=== PATIENT | female | born 1975 | race Caucasian/White ===

== ENCOUNTER 2016-10-25 23:25 | Observation (INO) | payer BC, MEDICAID, OTHER ==
[~2016-10-25] VITALS: Ht 167.6 cm; Wt 116.5 kg
[~2016-10-25 23:25] MED LIST: APIX5TAB PO; ATEN50TA PO; GABA600T PO; LISI10TA3 PO; MORP1CAP79 PO; PERC10TA27 PO; PROM25TA10 PO; ROBA500T PO; SYNT175T PO; XANA2TAB2 PO
[2016-10-25] MEDS ORDERED: SODIUM CHLOR 0.9% 1000 ML INJ 1,000 ML IV ONE (23:27)
[2016-10-25 23:28] VITALS: BP 173/91; PULSE 70; RESP 17; O2SAT 98
--- NOTE | 2016-10-25 23:38 | PD ---
HPI Chief Complaint: Stroke Alert Time Seen by Provider: 23:27 Travel History International Travel<30 days: No Contact w/Intl Traveler<30days: No Traveled to known affect area: No History of Present Illness HPI The patient is a 40 year old female who presents to the [facility] emergency department with a history of reportedly taking a nap sometime this afternoon after having dinner at 6 PM because she was not feeling well. She reports that she awoke suddenly approximately 45 minutes to an hour before going to the [place] emergency department with numbness to the right side of the face and right arm and right leg weakness with facial droop of the right side of the face, right arm, and right leg. The patient was initially called as a stroke alert and evaluated by Dr. Arreguin at the [place] emergency department. The patient has a history of DVT, PE, and TIAs in the past. Most recent TIA was reportedly in 2017. The patient is also reportedly anticoagulated chronically on Eliquis. The patient has difficulty quantifying exactly how she fell ill prior to taking her nap. The patient is unsure what time she went to take a nap. She reports that she does live with her dad who may be aware of when she went to sleep. Unfortunately, her father is not available in the emergency department at this time. The patient did undergo a CT scan of the brain without contrast that was negative in [place]. The patient was transferred over to this facility for admission. The patient unfortunately is a poor historian, therefore her review of systems was limited. [facility] Past Medical History Narrative Medical The patient's past medical history is significant for being chronically anticoagulated on Eliquis related to DVTs and PEs due to a history of antiphospholipid antibody syndrome. The patient has a history of TIA, anxiety disorder, anemia, arthritis, hypothyroid disorder, hypertension. Hx Anticoagulant Therapy: Yes Anemia: Yes Arthritis: Yes Anxiety: Yes Depression: Yes Cardiovascular Problems: Yes (DVT, PE) Cerebrovascular Accident: Yes Diminished Hearing: No Deep Vein Thrombosis: Yes Hypertension: Yes Psychiatric: Yes (PANIC ATTACKS) Respiratory: Yes (PUL EMBOLISM) Thyroid Disease: Yes Past Surgical History Narrative Surgical The patient's past surgical history is significant for an appendectomy, C- section, hysterectomy, tonsillectomy, partial thyroidectomy. Appendectomy: Yes Section: Yes Hysterectomy: Yes (HTN) Tonsillectomy: Yes Other Surgery: Yes (THYROID REMOVED) Social History Alcohol Use: No (2 DRINKS PER MONTH) Tobacco Use: Yes (SOCIAL) Substance Use: No Allergies-Medications (Allergen,Severity, Reaction): Coded Allergies: Albuterol (Verified Allergy, Severe, 10/26/16) Arixtra (Verified Allergy, Severe, Bleeding, 10/26/16) Baclofen (Verified Allergy, Severe, Swelling, 10/26/16) Coumadin (Verified Allergy, Severe, 10/26/16) Lovenox (Verified Allergy, Severe, Bleeding, 10/26/16) Pradaxa (Verified Allergy, Severe, Swelling, 10/26/16) Reglan (Verified Allergy, Severe, Rash, 10/26/16) Tapazole (Verified Allergy, Severe, 10/26/16) Toradol (Verified Allergy, Severe, 10/26/16) Xarelto (Verified Allergy, Severe, Bleeding, 10/26/16) Zofran (Verified Allergy, Severe, 10/26/16) Reported Meds & Prescriptions Reported Meds & Active Scripts Active Reported Robaxin (Methocarbamol) 500 Mg Tab 500 Mg PO TID Percocet (Oxycodone-Acetaminophen) 10-325 mg Tab 1 Tab PO Q6H PRN Embeda (Morphine-Naltrexone ER) 20-0.8 Mg Caper 1 Cap PO DAILY Eliquis (Apixaban) 5 Mg Tab 5 Mg PO BID Phenergan (Promethazine HCl) 25 Mg Tablet 50 Mg PO Q6H PRN Gabapentin 600 Mg Tab 400 Mg PO QID Xanax (Alprazolam) 2 Mg Tab 2 Mg PO Q6HR PRN Lisinopril 10 Mg Tab 10 Mg PO BID Atenolol 50 Mg Tab 50 Mg PO DAILY Synthroid (Levothyroxine Sodium) 175 Mcg Tab 175 Mcg PO DAILY Review of Systems Except as stated in HPI: all other systems reviewed are Neg General / Constitutional: No: Fever Eyes: No: Visual changes HENT: No: Headaches Cardiovascular: No: Chest Pain or Discomfort Respiratory: No: Shortness of Breath Gastrointestinal: No: Abdominal Pain Genitourinary: No: Dysuria Musculoskeletal: No: Pain Skin: No Rash Neurologic: Positive: Weakness, Focal Abnormalities, Headache, Sensory Disturbance, No: Change in Mentation, Slurred Speech Psychiatric: No: Depression Endocrine: No: Polydipsia Hematologic/Lymphatic: No: Easy Bruising Physical Exam Narrative General: The patient is a well-developed well-nourished female in no acute distress on arrival. Head and Neck exam: Head is normocephalic atraumatic. Eyes: EOMI, pupils are equal round and reactive to light. Nose: Midline septum with pink mucous membranes Mouth: Dentition unremarkable. Moist mucus membranes. Posterior oropharynx is not erythematous. No tonsillar hypertrophy. Uvula midline. Airway patent. Neck: No palpable lymphadenopathy. No nuchal rigidity. No thyromegaly. Cardiovascular: Regular rate and rhythm without murmurs, gallops, or rubs. Lungs: Clear to auscultation bilaterally. No wheezes, rhonchi, or rales. Abdomen: Soft, without tenderness to palpation in all 4 quadrants of the abdomen. No guarding, rebound, or rigidity. Normal bowel sounds are audible. No tenderness on palpation of McBurney's point. Negative [place] sign. Extremities: No clubbing or cyanosis. The patient has trace to 1+ edema bilateral lower extremities. 2+ pulses in all 4 extremities. No calf tenderness on palpation. Back: No costovertebral angle tenderness to palpation. Neurologic Exam: The patient on neurologic examination has a right-sided facial droop, right upper and right lower extremity weakness that is 4 over 5. The patient has diminished sensation in the right side of the face, right upper and right lower extremity. The patient is oriented to person, place, situation. Skin Exam: No rash noted. Intact skin that is warm and dry. Data Data Last Documented VS Vital Signs Date Time Temp Pulse Resp B/P Pulse Ox O2 Delivery O2 Flow Rate FiO2 10/25/16 23:46 95 Room Air 10/25/16 23:46 16 10/25/16 23:28 70 173/91 Orders Activity Bed Rest (10/25/16 ) Consult Neurology (10/25/16 ) Ecg Monitoring (10/25/16 23:27) Neuro Checks Q2HX12,Q4H (10/25/16 23:27) Nursing Bedside Swallow Assess .ONCE (10/25/16 23:27) Iv Access Insert/Monitor (10/25/16 23:27) NPO (10/25/16 23:27) Oximetry (10/25/16 23:27) Oxygen Administration (10/25/16 23:27) Sodium Chlor 0.9% 1000 Ml Inj (Ns 1000 M (10/25/16 23:27) Resp Oxygen Justo C Titrat 1-4 L (10/25/16 23:) Cath For Specimen (10/25/16 23:) Admit Order (Ed Use Only) (10/26/16 00:37) MDM Medical Decision Making Medical Screen Exam Complete: Yes Emergency Medical Condition: Yes Medical Record Reviewed: Yes Differential Diagnosis Ischemic stroke, versus TIA, versus somatization Narrative Course During the course of the patients emergency department visit, the patients history, examination, and differential diagnosis were reviewed with the patient. The patient had IV access obtained and blood work sent for analysis. The patient was placed with the head of the bed flat. The patient was placed on normal saline 70 mL per hour. The patient's laboratory studies and CT scan of the brain from the other facility were reviewed. The patient's CT scan of the brain showed no acute abnormality. A CTA of the brain and CTA of the neck was ordered at this facility. Radiology studies were reviewed and remarkable for a CTA of the neck that shows normal examination of the neck arterial vasculature. The patient CTA of the brain shows no acute abnormality. The patients results were discussed with the patient, including the plan of care. I explained that further testing and/ or monitoring is indicated based on the patients history, examination, and/ or laboratory findings. Therefore, I recommended admission for additional evaluation. The patient expressed understanding and was agreeable with this plan. The patient was admitted to the hospital in stable condition and [facility] Physician Communication Physician Communication The patient's case was discussed with Dr. Mcgowan who did agree to admit the patient for further evaluation and treatment at this time. The patient's case was discussed with Dr. Gaines. She reports that the patient is not a candidate for TPA due to the patient being on L [place]. We did discuss the possibility of additional imaging. She did agree with the plan to receipt with CTA of the brain along with CT a of the neck Diagnosis Primary Impression: CVA (cerebral vascular accident) Qualified Code: I63.9 - Cerebrovascular accident (CVA), unspecified mechanism Admitting Information Admitting Physician Requests: Cristina Scales MD Oct 25, 2016 23:38
[2016-10-25 23:46] VITALS: RESP 16; O2SAT 9; O2SAT 95
[2016-10-26] MEDS ORDERED: IOHEXOL 350 MG/ML 10 ML VIAL (for RAD DIAG) IV ONE (00:52)
[2016-10-26] MEDS ORDERED: SODIUM CHLORIDE 0.9% FLUSH 10 ML FLUSH IV FLUSH PRN (01:15)
[2016-10-26] MEDS ORDERED: NALOXONE HCL 0.4 MG/ML AMP IV PRN (01:15)
--- NOTE | 2016-10-26 01:36 | RADRPT ---
EXAM DATE/TIME: 10/26/2016 01:21 [facility] COMPARISON: No previous studies available for comparison. INDICATIONS : Stroke alert. Right sided weakness and slurred speech. IV CONTRAST: 90 cc Omnipaque 350 (iohexol) IV ; Cumulative dose for multiple exams. RADIATION DOSE: 28.75 CTDIvol (mGy) ; Combined studies MEDICAL HISTORY : Cerebrovascular disease. Deep venous thrombosis. Hypertension. SURGICAL HISTORY : Hysterectomy. ENCOUNTER: Initial ACUITY: 1 day PAIN SCALE: 0/10 LOCATION: cranial TECHNIQUE: Volumetric scanning was performed using a multi-row detector CT scanner. The data was post processed with a variety of visualization algorithms including full volume maximum intensity projection, multi -planar sliding thin slab reformation, curved planar reformation, and surface rendering techniques. Using automated exposure control and adjustment of the mA and/or kV according to patient size, radiat ion dose was kept as low as reasonably achievable to obtain optimal diagnostic quality images. DICO M format image data is available electronically for review and comparison. FINDINGS: Anterior circulation: Arterial vessels are patent without significant stenosis. No aneurysm or vascular malformation is luis ntified. There is persistent circulation on the left. Posterior circulation: Left vertebral artery is dominant. Basilar artery is within normal limits. No aneurysm is identified. CONCLUSION: No acute intracranial vascular abnormality is identified. Stanford Salinas MD on October 26, 2016 at 1:27 Board Certified Radiologist. This report was verified electronically.
--- NOTE | 2016-10-26 01:37 | RADRPT ---
EXAM DATE/TIME: 10/26/2016 01:21 [facility] COMPARISON: No previous studies available for comparison. INDICATIONS : Stroke alert. Right sided weakness and slurred speech. IV CONTRAST: 90 cc Omnipaque 350 (iohexol) IV ; Cumulative dose for multiple exams. RADIATION DOSE: 28.75 CTDIvol (mGy) ; Combined studies MEDICAL HISTORY : Cerebrovascular disease. Deep venous thrombosis. Hypertension. SURGICAL HISTORY : Hysterectomy. ENCOUNTER: Initial ACUITY: 1 day PAIN SCALE: 0/10 LOCATION: neck Elevated flow velocities and ICA/CCA ratios have been found to correlate with increased degrees of vessel stenosis, calculated as percentage of diameter relative to a normal segment of distal ICA/CCA. TECHNIQUE: Volumetric scanning was performed using a multirow detector CT scanner. The data was post processed with a variety of visualization algorithms including full-volume maximum intensity projection, multip lanar sliding thin-slab reformation, curved-planar reformation, and surface-rendering techniques. Us ing automated exposure control and adjustment of the mA and/or kV according to patient size, radiatio n dose was kept as low as reasonably achievable to obtain optimal diagnostic quality images. DICOM f ormat image data is available electronically for review and comparison. FINDINGS: AORTIC ARCH: There is a three-vessel origin of the great vessels from the aorta. No evidence of ostial narrowing. RIGHT CAROTID: The common carotid artery is within normal limits. The carotid bulb has a normal configuration withou t ulceration or narrowing. The internal carotid artery lumen is smooth without stenosis. The externa l carotid artery is within normal limits. LEFT CAROTID: The common carotid artery is within normal limits. The carotid bulb has a normal configuration withou t ulceration or narrowing. The internal carotid artery lumen is smooth without stenosis. The externa l carotid artery is within normal limits. VERTEBRALS: The left vertebral artery is dominant. CONCLUSION: Normal examination of the neck arterial vasculature. Stanford Salians MD on October 26, 2016 at 1:34 Board Certified Radiologist. This report was verified electronically.
[2016-10-26 04:00] VITALS: BP 146/79; PULSE 66; RESP 18; TEMP 98.4; O2SAT 98
[2016-10-26] MEDS: ACETAMINOPHEN/HYDROcodone 325 MG/5 MG TAB PO PRN ×2 (05:57→10:48)
[2016-10-26 08:02] VITALS: BP 152/84; PULSE 65; RESP 20; TEMP 97.8; O2SAT 96
[2016-10-26 08:41] VITALS: O2SAT 95
[2016-10-26] MEDS: SODIUM CHLORIDE 0.9% FLUSH 10 ML FLUSH IV FLUSH SCH ×2 (09:00→20:43)
--- NOTE | 2016-10-26 09:24 | HHI.HP ---
HPI Service [facility] Primary Care Physician Unknown Admission Diagnosis CVA versus TIA Diagnoses: Chief Complaint: Right-sided numbness Travel History International Travel<30 Days: No Contact w/Intl Traveler <30 Da: No Traveled to Known Affected Are: No History of Present Illness This is a 40-year-old female past medical history of anxiety, lupus, transverse myelitis, hypertension, history of PE/DVTs, and antiphospholipid syndrome who presented with right-sided numbness. Patient stated that she has not been feeling well the entire week. She went to [facility] 1 week ago because she was not feeling well and she had some left leg swelling. She had ultrasound done to rule out DVT and that was negative. Patient stated that she was discharged from the ER. She stated that yesterday she woke up feeling like "right side popped and felt like cold water dripping on her face.' Patient stated she then " popped out of bed." She relates that her entire right side was numb including the right side of her face. Patient stated at the moment numbness continues and she has no strength in her left foot. She denies any back pain at all. Patient denies any urinary or fecal incontinence. Patient also stated that she is able to squeeze my fingers but she cannot lift her right arm. When I told patient the results of the imaging. She stated that she was told at [facility] that she has a clot in the brain of her left artery and that she needed to be transferred here. Patient stated that she is compliant with her eliquis. Review of Systems Constitutional: DENIES: Diaphoretic episodes, Fatigue, Fever, Weight gain, Weight loss, Chills, Dizziness, Change in appetite, Night Sweats Endocrine: DENIES: Abnorml menstrual pattern, Heat/cold intolerance, Polydipsia , Polyuria, Polyphagia Eyes: DENIES: Blurred vision, Diplopia, Eye inflammation, Eye pain, Vision loss , Photosensitivity, Double Vision Ears, nose, mouth, throat: DENIES: Tinnitus, Hearing loss, Vertigo, Nasal discharge, Oral lesions, Throat pain, Hoarseness, Ear Pain, Running Nose, Epistaxis, Sinus Pain, Toothache, Odynophagia Respiratory: DENIES: Apneas, Cough, Snoring, Wheezing, Hemoptysis, Sputum production, Shortness of breath Cardiovascular: DENIES: Chest pain, Palpitations, Syncope, Dyspnea on Exertion , PND, Lower Extremity Edema, Orthopnea, Claudication Gastrointestinal: DENIES: Abdominal pain, Black stools, Bloody stools, Constipation, Diarrhea, Nausea, Vomiting, Difficulty Swallowing, Anorexia Genitourinary: DENIES: Abnormal vaginal bleeding, Dysmenorrhea, Dyspareunia, Sexual dysfunction, Urinary frequency, Urinary incontinence, Urgency, Hematuria , Dysuria, Nocturia, Vaginal discharge Musculoskeletal: DENIES: Joint pain, Muscle aches, Stiffness, Joint Swelling, Back pain, Neck pain Integumentary: DENIES: Abnormal pigmentation, Pruritus, Rash, Nail changes, Breast masses, Breast skin changes, Nipple discharge Hematologic/lymphatic: DENIES: Bruising, Lymphadenopathy Immunologic/allergic: DENIES: Eczema, Urticaria Neurologic: COMPLAINS OF: Localized weakness, Paresthesias, DENIES: Abnormal gait, Headache, Seizures, Speech Problems, Tremor, Poor Balance Psychiatric: DENIES: Anxiety, Confusion, Mood changes, Depression, Hallucinations, Agitation, Suicidal Ideation, Homicidal Ideation, Delusions Past Family Social History Past Medical History Lupus, transverse myelitis, antiphospholipid syndrome, history of PE/DVTs, hypertension, anxiety/depression, hypothyroidism, chronic pain syndrome Past Surgical History IVC filter, appendectomy, thyroidectomy, tonsillectomy and Reported Medications Robaxin (Methocarbamol) 500 Mg Tab 500 Mg PO TID Percocet (Oxycodone-Acetaminophen) 10-325 mg Tab 1 Tab PO Q6H PRN Embeda (Morphine-Naltrexone ER) 20-0.8 Mg Caper 1 Cap PO DAILY Eliquis (Apixaban) 5 Mg Tab 5 Mg PO BID Phenergan (Promethazine HCl) 25 Mg Tablet 50 Mg PO Q6H PRN Gabapentin 600 Mg Tab 400 Mg PO QID Xanax (Alprazolam) 2 Mg Tab 2 Mg PO Q6HR PRN Lisinopril 10 Mg Tab 10 Mg PO BID Atenolol 50 Mg Tab 50 Mg PO DAILY Synthroid (Levothyroxine Sodium) 175 Mcg Tab 175 Mcg PO DAILY Allergies: Coded Allergies: Albuterol (Verified Allergy, Severe, 10/26/16) Arixtra (Verified Allergy, Severe, Bleeding, 10/26/16) Baclofen (Verified Allergy, Severe, Swelling, 10/26/16) Coumadin (Verified Allergy, Severe, 10/26/16) Lovenox (Verified Allergy, Severe, Bleeding, 10/26/16) Pradaxa (Verified Allergy, Severe, Swelling, 10/26/16) Reglan (Verified Allergy, Severe, Rash, 10/26/16) Tapazole (Verified Allergy, Severe, 10/26/16) Toradol (Verified Allergy, Severe, 10/26/16) Xarelto (Verified Allergy, Severe, Bleeding, 10/26/16) Zofran (Verified Allergy, Severe, 10/26/16) Active Ordered Medications Current Medications Sodium Chloride (NS 1000 ml Inj) 1,000 ml @ 70 mls/hr [id number] ONCE IV Last administered on 10/25/16 23:52; Start 10/25/16 at 23:27; Stop 10/26/16 at 13:44 Iohexol (Omnipaque 350 Inj) 90 ml STK-MED ONCE IV Last administered on 00:52; Start 10/26/16 at 00:52; Stop 10/26/16 at 00:53; Status DC Sodium Chloride (NS Flush) 2 ml UNSCH PRN IV FLUSH FLUSH AFTER USING IV ACCESS ; Start 10/26/16 at 01:15 Sodium Chloride (NS Flush) 2 ml BID IV FLUSH ; Start 10/26/16 at 09:00 Naloxone HCl (Narcan Inj) 0.4 mg UNSCH PRN IV SEE LABEL COMMENTS; Start at 01:15 Acetaminophen/ Hydrocodone Bitart ([place] 5-325 Mg) 1 tab Q6H PRN PO pain >5 Last administered on 10/26/16 05:57; Start 10/26/16 at 05:15 Family History Father had a history of diabetes and lymphoma. Mother had a history of breast cancer. Paternal aunt had history of renal cancer. Social History Positive tobacco use occasionally about once a week. Denies any alcohol illicit drug use. Physical Exam Vital Signs Vital Signs Date Time Temp Pulse Resp B/P Pulse Ox O2 Delivery O2 Flow Rate FiO2 10/26/16 08:41 95 Nasal Cannula 2.00 10/26/16 08:02 97.8 65 20 152/84 96 10/26/16 04:00 98.4 66 18 146/79 98 10/25/16 23:46 95 Room Air 10/25/16 23:46 16 95 Room Air 10/25/16 23:40 16 96 Room Air 10/25/16 23:28 70 17 173/91 98 Physical Exam GENERAL: This is a well-nourished, well-developed patient, in no apparent distress. SKIN: No rashes, ecchymoses or lesions. Cool and dry. HEAD: Atraumatic. Normocephalic. No temporal or scalp tenderness. EYES: Pupils equal round and reactive. Extraocular motions intact. No scleral icterus. No injection or drainage. ENT: Nose without bleeding, purulent drainage or septal hematoma. Throat without erythema, tonsillar hypertrophy or exudate. Uvula midline. Airway patent. NECK: Trachea midline. No JVD or lymphadenopathy. Supple, nontender, no meningeal signs. CARDIOVASCULAR: Regular rate and rhythm without murmurs, gallops, or rubs. RESPIRATORY: Clear to auscultation. Breath sounds equal bilaterally. No wheezes , rales, or rhonchi. GASTROINTESTINAL: Abdomen soft, non-tender, nondistended. No hepato-splenomegaly , or palpable masses. No guarding. MUSCULOSKELETAL: Extremities without clubbing, cyanosis, or edema. No joint tenderness, effusion, or edema noted. No calf tenderness. Negative Homans sign bilaterally. NEUROLOGICAL: Awake and alert AAO 3. Cranial nerves II through XII intact. Normal speech. To touch patient stated that right-sided of face feels numb, and right extremities. 0 out of 5 right lower extremity strength. Patient able to squeeze with right hand. But she is not able to move her shoulder. She has full passive range of motion of her shoulder with no pain. Imaging Last Impressions Neck CTA 10/26/16120 Signed Impressions: Service Date/Time: Wednesday, October 26, 2016 01:21 - CONCLUSION: Normal examination of the neck arterial vasculature. Stanford Salinas MD Head CTA 10/26/16120 Signed Impressions: Service Date/Time: Wednesday, October 26, 2016 01:21 - CONCLUSION: No acute intracranial vascular abnormality is identified. Stanford Salinas MD CT scan of the brain was negative. Assessment and Plan Assessment and Plan 40-year-old female with history of TIA, lupus, antiphospholipid syndrome, PE/ DVTs status post IVC filter placement, hypertension, anxiety/depression who presented with right-sided numbness/weakness Right-sided numbness/weakness -CT scan the brain was negative for any knee intracranial process. CTA of that head and neck also negative. -Based on clinical exam/symptoms I cannot localize a lesion to the brain. Usually if patient has upper facial numbness/symptoms it would be on the opposite side. -May be secondary to migraine versus psychiatric issues. -Psychiatrist and neurologist already consulted. -We will get an MRI of the brain to make sure this is not CVA. -Patient already on Eliquis and has an IVC filter. Lupus/antiphospholipid syndrome/chronic pain syndrome, history of PE/DVT status post IVC filter placement, hypertension, anxiety/depression -Will hold her antihypertensive medication pending MRI. Otherwise continue with home medication. Occasional tobacco use -Education given on smoking cessation. DVT prophylaxis -Patient is on Eliquis. Code Status full Discussed Condition With patient Patricia Soto MD Oct 26, 2016 09:24
[2016-10-26] MEDS ORDERED: ALPRAZolam 1 MG TAB PO PRN (11:00)
[2016-10-26 12:36] VITALS: BP 166/96; PULSE 72; RESP 20; TEMP 97.9; O2SAT 95
[2016-10-26] MEDS: GABAPENTIN 400 MG CAP PO SCH ×2 (12:48→20:41)
[2016-10-26] MEDS: METHOCARBAMOL 500 MG TAB PO SCH ×2 (12:48→18:00)
[2016-10-26] MEDS ORDERED: LORazepam 2 MG/ML VIAL IV PUSH ONE (13:45)
[2016-10-26] MEDS: oxyCODONE/ACETAMINOPHEN 10 MG/325 MG TAB PO PRN ×2 (14:19→20:42)
--- NOTE | 2016-10-26 15:27 | PD.PSY.CON ---
Provisional Diagnosis Admission Date Oct 26, 2016 at 00:38 [place] I. Adjustment disorder with depressed mood and anxiety, history of generalized anxiety disorder, history of major depressive disorder [place] II. Deferred [place] III. Lupus, antiphospholipid syndrome, hypothyroidism [place] IV. History of suicide attempts, multiple hospitalizations due to medical problems [place] V. 55 History of Present Illness Service Psychiatry Consult Requested By Primary Care Physician Unknown HPI The patient 40-year-old woman, but , domiciled with her parents, she has an 18 years old daughter, unemployed, with psychiatric history of generalized anxiety disorder, major depressive disorder, 3 previous psychiatric hospitalizations, no previous suicidal attempts, no active outpatient care at this moment, she reports being and Xanax 2 mg PER day, past medical history of lupus, transverse myelitis, hypertension, history of PE/DVTs , and antiphospholipid syndrome who presented with right-sided numbness. Patient stated that she has not been feeling well the entire week. She went to [facility] 1 week ago because she was not feeling well and she had some left leg swelling. She had ultrasound done to rule out DVT and that was negative. Patient stated that she was discharged from the ER. She stated that yesterday she woke up feeling like "right side popped and felt like cold water dripping on her face.' Patient stated she then " popped out of bed." She relates that her entire right side was numb including the right side of her face. Patient was consulted to psychiatry for management of anxiety and depressive symptoms. On psychiatric evaluation today patient is found calm and cooperative. Very talkative and circumstantial, but redirectable. She is complaining by her parents and she wanted to be evaluated in front of them. When she was asked 5- 10 minutes of privacy she says that "there is nothing that my parents cannot know about me". Patient reports that she has been feeling increasingly anxious the last weeks asked her medical condition has been deteriorating. Patient says that she has lost her functionality, her ability to make money, but also the ability to do simple things in her house. For this reason she has been anxious and depressed. She says that her appetite is a low, has insomnia, increased anxiety, but denies hopelessness, denies helplessness, she denies suicidal and homicidal ideation. She denies visual and auditory hallucinations. Patient says that another reason for her depression and anxiety is that "doctors are reluctant to prescribe me a medication that I need ". She is fully oriented 3, no attention deficit, no gross cognitive impairment present. She denies any current, acute, new onset traumatic experiences in her life. She says that other than her current medical conditions, maybe the only issue that is concerning for her and he says is that her 18 years old daughter is going start college. Patient denies the use of illicit drugs and alcohol. Review of Systems Constitutional: DENIES: Diaphoretic episodes, Fatigue, Fever, Weight gain, Weight loss, Chills, Dizziness, Change in appetite, Night Sweats Endocrine: DENIES: Abnorml menstrual pattern, Heat/cold intolerance, Polydipsia , Polyuria, Polyphagia Eyes: DENIES: Blurred vision, Diplopia, Eye inflammation, Eye pain, Vision loss , Photosensitivity, Double Vision Ears, nose, mouth, throat: DENIES: Tinnitus, Hearing loss, Vertigo, Nasal discharge, Oral lesions, Throat pain, Hoarseness, Ear Pain, Running Nose, Epistaxis, Sinus Pain, Toothache, Odynophagia Respiratory: DENIES: Apneas, Cough, Snoring, Wheezing, Hemoptysis, Sputum production, Shortness of breath Cardiovascular: DENIES: Chest pain, Palpitations, Syncope, Dyspnea on Exertion , PND, Lower Extremity Edema, Orthopnea, Claudication Gastrointestinal: DENIES: Abdominal pain, Black stools, Bloody stools, Constipation, Diarrhea, Nausea, Vomiting, Difficulty Swallowing, Anorexia Musculoskeletal: DENIES: Joint pain, Muscle aches, Stiffness, Joint Swelling, Back pain, Neck pain Integumentary: DENIES: Abnormal pigmentation, Pruritus, Rash, Nail changes, Breast masses, Breast skin changes, Nipple discharge Hematologic/lymphatic: DENIES: Bruising, Lymphadenopathy Immunologic/allergic: DENIES: Eczema, Urticaria Neurologic: DENIES: Abnormal gait, Headache, Localized weakness, Paresthesias, Seizures, Speech Problems, Tremor, Poor Balance Psychiatric: COMPLAINS OF: Anxiety, Depression Past Family Social History Coded Allergies: Albuterol (Verified Allergy, Severe, 10/26/16) Arixtra (Verified Allergy, Severe, Bleeding, 10/26/16) Baclofen (Verified Allergy, Severe, Swelling, 10/26/16) Coumadin (Verified Allergy, Severe, 10/26/16) Lovenox (Verified Allergy, Severe, Bleeding, 10/26/16) Pradaxa (Verified Allergy, Severe, Swelling, 10/26/16) Reglan (Verified Allergy, Severe, Rash, 10/26/16) Tapazole (Verified Allergy, Severe, 10/26/16) Toradol (Verified Allergy, Severe, 10/26/16) Xarelto (Verified Allergy, Severe, Bleeding, 10/26/16) Zofran (Verified Allergy, Severe, 10/26/16) Reported Medications Methocarbamol (Robaxin)500 Mg [id number] Mg PO TID Ref 0 08/31/16 Oxycodone-Acetaminophen (Percocet)10-325 mg Tab1 Tab PO Q6H PRN (PAIN) Ref 0 08/31/16 Morphine-Naltrexone ER (Embeda)20-0.8 Mg Caper1 Cap PO DAILY #30 CAP Ref 0 08/31/16 Apixaban (Eliquis)5 Mg Tab5 Mg PO BID #60 TAB Ref 0 08/31/16 Promethazine (Phenergan)25 Mg [id number] Mg PO Q6H PRN (NAUSEA OR VOMITING) Ref 0 08/31/16 Gabapentin 600 Mg [id number] Mg PO QID #90 TAB Ref 0 08/31/16 Alprazolam (Xanax)2 Mg Tab2 Mg PO Q6HR PRN (ANXIETY) Ref 0 08/31/16 Lisinopril 10 Mg Tab10 Mg PO BID #30 TAB Ref 0 08/31/16 Atenolol 50 Mg Tab50 Mg PO DAILY #30 TAB Ref 0 08/31/16 Levothyroxine (Synthroid)175 Mcg [id number] Mcg PO DAILY #30 TAB Ref 0 08/31/16 Current Medications Medications (Trade) Dose Ordered Sig/Tiffanie Route Start Time Stop Time Status Last Admin (NS Flush) 2 ml UNSCH PRN IV FLUSH 10/26/16 01:15 (NS Flush) 2 ml BID IV FLUSH 10/26/16 09:00 (Narcan Inj) 0.4 mg UNSCH PRN IV 10/26/16 01:15 (Xanax) 2 mg Q6HR PRN PO 10/26/16 11:00 10/26/16 20:00 10/26/16 10:48 (Eliquis) 5 mg BID PO 10/26/16 21:00 (Neurontin) 400 mg QID PO 10/26/16 13:00 10/26/16 12:48 (Robaxin) 500 mg TID PO 10/26/16 13:00 10/26/16 12:48 (Synthroid) 100 mcg DAILY@06 PO 10/27/16 06:00 Patient Own Medication PT OWN MED: MORPHINE-NALTREXONE (EMBEDA) 20-0.8... DAILY PO 10/27/16 09:00 Future Hold (Synthroid) 75 mcg DAILY@06 PO 10/27/16 06:00 (Percocet 10-325 Mg) 1 tab Q6H PRN PO 10/26/16 13:15 10/26/16 14:19 Family History Patient denies family psychiatric history Social History Patient was born in [place], she lives in [place] with her parents, and she is but , she has an 18 years old daughter, her highest level of education is college Physical Exam Vital Signs Vital Signs Date Time Temp Pulse Resp B/P Pulse Ox O2 Delivery O2 Flow Rate FiO2 10/26/16 12:36 97.9 72 20 166/96 95 10/26/16 08:41 Nasal Cannula 2.00 Mental Status Examination Appearance Overweight woman, good hygiene, hospital [facility], calm, cooperative, very talkative Speech: Circumstantial Orientation: x3 Memory: Unremarkable Thought Process: Logical Thought Content: Unremarkable Hallucination Type: None Attention and Concentration: Good Suicidal Ideation: No Previous Suicide Attempts: No Homicidal Ideation: No Previous Homicide Attempts: No Insight: Good Judgment: WNL Affect: Euthymic Mood: Appropriate Motor Activity: Normal gait Assessment & Plan Problem List: (1) Adjustment disorder with mixed anxiety and depressed mood Assessment & Plan: On psychiatric evaluation today the patient reports mild to moderate symptomatology of anxiety and depression secondary to current medical conditions. Patient has history of psychiatric Hospitalizations due to major depressive disorder and anxiety and suicidal ideation, but she has been reportedly stable for several months and Xanax 2 mg 4 times per day, patient reports failure to multiple psychotropics for the treatment of depression and anxiety claiming that only Xanax is the medication that works for her. Patient identified as acute stressor for her anxiety and depressive symptoms her current medical conditions and the fact that her 18 years old daughter is is starting college. However, patient denies suicidal or homicidal ideation, she denies visual and auditory hallucinations. She does not meet criteria for psychiatric admission at this moment. I would recommend to start Xanax in a lower dose, 1 mg 3 times a day for anxiety. I recommended an SSRI or SNRI for depression and anxiety, but patient declined. Current presentation systole related with adjustment disorder. Benzodiazepine dependence, drug seeking behavior, personality disorder and even Conversion are possibilities that needs to be explore and having mind, but impossible to determined based on this evaluation due to the lack information about patient psychiatric history and other elements. Extensive support, relational psycho education provided. Consult appreciated. ICD Code: F43.23 Assessment & Plan Estimated LOS: days Luis Armando Grey MD Oct 26, 2016 15:27
--- NOTE | 2016-10-26 15:29 | PD.PSY.CON ---
Provisional Diagnosis Admission Date Oct 26, 2016 at 00:38 [place] I. Adjustment disorder with depressed mood and anxiety, history of generalized anxiety disorder, history of major depressive disorder [place] II. Deferred [place] III. Lupus, antiphospholipid syndrome, hypothyroidism [place] IV. History of suicide attempts, multiple hospitalizations due to medical problems [place] V. 55 History of Present Illness Service Psychiatry Consult Requested By Primary Care Physician Unknown HPI The patient 40-year-old woman, but , domiciled with her parents, she has an 18 years old daughter, unemployed, with psychiatric history of generalized anxiety disorder, major depressive disorder, 3 previous psychiatric hospitalizations, patient reports "hundreds of medical admissions due to multiple medical problems "no previous suicidal attempts, no active outpatient care at this moment, she reports being and Xanax 2 mg PER day, patient was seen by the psychiatric service in 2008 for medication refill of benzodiazepines, past medical history of lupus, transverse myelitis, hypertension, history of PE/DVTs, and antiphospholipid syndrome who presented with right-sided numbness. Patient stated that she has not been feeling well the entire week. She went to [facility] 1 week ago because she was not feeling well and she had some left leg swelling. She had ultrasound done to rule out DVT and that was negative. Patient stated that she was discharged from the ER. She stated that yesterday she woke up feeling like "right side popped and felt like cold water dripping on her face.' Patient stated she then " popped out of bed." She relates that her entire right side was numb including the right side of her face. Patient was consulted to psychiatry for management of anxiety and depressive symptoms. On psychiatric evaluation today patient is found calm and cooperative. Very talkative and circumstantial, but redirectable. She is complaining by her parents and she wanted to be evaluated in front of them. When she was asked 5-10 minutes of privacy she says that "there is nothing that my parents cannot know about me". Patient reports that she has been feeling increasingly anxious the last weeks asked her medical condition has been deteriorating. Patient says that she has lost her functionality, her ability to make money, but also the ability to do simple things in her house. For this reason she has been anxious and depressed. She says that her appetite is a low, has insomnia, increased anxiety, but denies hopelessness, denies helplessness, she denies suicidal and homicidal ideation. She denies visual and auditory hallucinations. Patient says that another reason for her depression and anxiety is that "doctors are reluctant to prescribe me a medication that I need". She is fully oriented 3, no attention deficit, no gross cognitive impairment present. She denies any current, acute, new onset traumatic experiences in her life. She says that other than her current medical conditions, maybe the only issue that is concerning for her and he says is that her 18 years old daughter is going start college. Patient denies the use of illicit drugs and alcohol. Past Family Social History Coded Allergies: Albuterol (Verified Allergy, Severe, 10/26/16) Arixtra (Verified Allergy, Severe, Bleeding, 10/26/16) Baclofen (Verified Allergy, Severe, Swelling, 10/26/16) Coumadin (Verified Allergy, Severe, 10/26/16) Lovenox (Verified Allergy, Severe, Bleeding, 10/26/16) Pradaxa (Verified Allergy, Severe, Swelling, 10/26/16) Reglan (Verified Allergy, Severe, Rash, 10/26/16) Tapazole (Verified Allergy, Severe, 10/26/16) Toradol (Verified Allergy, Severe, 10/26/16) Xarelto (Verified Allergy, Severe, Bleeding, 10/26/16) Zofran (Verified Allergy, Severe, 10/26/16) Reported Medications Methocarbamol (Robaxin)500 Mg [id number] Mg PO TID Ref 0 08/31/16 Oxycodone-Acetaminophen (Percocet)10-325 mg Tab1 Tab PO Q6H PRN (PAIN) Ref 0 08/31/16 Morphine-Naltrexone ER (Embeda)20-0.8 Mg Caper1 Cap PO DAILY #30 CAP Ref 0 08/31/16 Apixaban (Eliquis)5 Mg Tab5 Mg PO BID #60 TAB Ref 0 08/31/16 Promethazine (Phenergan)25 Mg [id number] Mg PO Q6H PRN (NAUSEA OR VOMITING) Ref 0 08/31/16 Gabapentin 600 Mg [id number] Mg PO QID #90 TAB Ref 0 08/31/16 Alprazolam (Xanax)2 Mg Tab2 Mg PO Q6HR PRN (ANXIETY) Ref 0 08/31/16 Lisinopril 10 Mg Tab10 Mg PO BID #30 TAB Ref 0 08/31/16 Atenolol 50 Mg Tab50 Mg PO DAILY #30 TAB Ref 0 08/31/16 Levothyroxine (Synthroid)175 Mcg [id number] Mcg PO DAILY #30 TAB Ref 0 08/31/16 Current Medications Medications (Trade) Dose Ordered Sig/Tiffanie Route Start Time Stop Time Status Last Admin (NS Flush) 2 ml UNSCH PRN IV FLUSH 10/26/16 01:15 (NS Flush) 2 ml BID IV FLUSH 10/26/16 09:00 (Narcan Inj) 0.4 mg UNSCH PRN IV 10/26/16 01:15 (Xanax) 2 mg Q6HR PRN PO 10/26/16 11:00 10/26/16 20:00 10/26/16 10:48 (Eliquis) 5 mg BID PO 10/26/16 21:00 (Neurontin) 400 mg QID PO 10/26/16 13:00 10/26/16 12:48 (Robaxin) 500 mg TID PO 10/26/16 13:00 10/26/16 12:48 (Synthroid) 100 mcg DAILY@06 PO 10/27/16 06:00 Patient Own Medication PT OWN MED: MORPHINE-NALTREXONE (EMBEDA) 20-0.8... DAILY PO 10/27/16 09:00 Future Hold (Synthroid) 75 mcg DAILY@06 PO 10/27/16 06:00 (Percocet 10-325 Mg) 1 tab Q6H PRN PO 10/26/16 13:15 10/26/16 14:19 Physical Exam Vital Signs Vital Signs Date Time Temp Pulse Resp B/P Pulse Ox O2 Delivery O2 Flow Rate FiO2 10/26/16 12:36 97.9 72 20 166/96 95 10/26/16 08:41 Nasal Cannula 2.00 Mental Status Examination Speech: Circumstantial Orientation: x3 Memory: Unremarkable Thought Process: Logical Thought Content: Unremarkable Hallucination Type: None Attention and Concentration: Good Suicidal Ideation: No Previous Suicide Attempts: No Homicidal Ideation: No Previous Homicide Attempts: No Insight: Good Judgment: WNL Affect: Euthymic Mood: Appropriate Motor Activity: Normal gait Assessment & Plan Problem List: (1) Adjustment disorder with mixed anxiety and depressed mood ICD Code: F43.23 Assessment & Plan Estimated LOS: days Luis Armando Grey MD Oct 26, 2016 15:29
[2016-10-26 15:59] VITALS: BP 151/95; PULSE 70; RESP 20; TEMP 97.7; O2SAT 94
--- NOTE | 2016-10-26 18:39 | RADRPT ---
EXAM DATE/TIME: 10/26/2016 17:49 [place] COMPARISON: No previous studies available for comparison. INDICATIONS : Right sided weakness. CVA. MEDICAL HISTORY : Deep venous thrombosis. Hypertension. Transverse myelitis. Pulmonary embolism. TIA. SURGICAL HISTORY : section. Thyroidectomy. Tonsillectomy. Appendectomy. IVC filter. ENCOUNTER: Subsequent ACUITY: 2 day PAIN SCORE: 0/10 LOCATION: head. TECHNIQUE: Multiplanar, multisequence MRI of the brain was performed without contrast. FINDINGS: CEREBRUM: The ventricles are normal for age. No evidence of midline shift, mass lesion, hemorrhage or acute in farction. No extraaxial fluid collections are seen. The pituitary gland and suprasellar cistern are normal in configuration. WHITE MATTER: No significant signal abnormalities are seen in the white matter. POSTERIOR FOSSA: The cerebellum and brainstem are intact. The 4th ventricle is midline. The cerebellopontine angle is unremarkable. The cerebellar tonsils are normal in position. DIFFUSION IMAGING: No focal areas of restricted diffusion are seen. No evidence of acute infarction. EXTRACRANIAL: The visualized portions of the orbits and paranasal sinuses are unremarkable. CONCLUSION: 1. Unremarkable MRI the brain. 2. No acute infarction seen. Alen Morillo MD on October 26, 2016 at 18:35 Board Certified Radiologist. This report was verified electronically.
[2016-10-26 20:00] VITALS: BP 128/75; PULSE 79; RESP 20; TEMP 98; O2SAT 98
[2016-10-26] MEDS: APIXABAN 5 MG TABLET PO SCH (20:43)
[2016-10-26] MEDS: ALPRAZolam 1 MG TAB PO SCH (20:43)
[2016-10-27] VITALS (7 sets, daily range): BP systolic 104–162; BP diastolic 67–99; PULSE 68–84; RESP 18–20; TEMP 97.8–98.3; O2SAT 93–100
[2016-10-27] MEDS: ALPRAZolam 1 MG TAB PO SCH ×2 (05:01→12:35)
[2016-10-27] MEDS ORDERED: LEVOTHYROXINE SODIUM 75 MCG TAB PO SCH (06:00)
[2016-10-27] MEDS ORDERED: LEVOTHYROXINE SODIUM 100 MCG TAB PO SCH (06:00)
--- NOTE | 2016-10-27 06:35 | MB ---
cc: LULÚ JARA M.D. DATE OF CONSULTATION 10/26/2016 REASON FOR CONSULTATION Stroke Alert. HISTORY OF PRESENT ILLNESS Ms. Watts is a pleasant 40-year-old female who states she has an antiphospholipid antibody syndrome with history of DVT and PE. She takes Eliquis because of this. Yesterday she developed sudden onset of weakness involving the right arm and right leg with a right facial droop and difficulty speaking after she woke up from a nap. She presented to the emergency room at [facility] as a Stroke Alert. The case was discussed with Dr. Gaines, neurologist probation and patrol agent. She was not a candidate for IV t-PA because she was on the Eliquis. In [facility] the CT of the brain as normal. She was transferred to the [facility]. Here she has undergone further evaluation with a CT angiogram of the neck as well as the brain, both of which were normal. There is no evidence of any large vessel occlusion. She states she still has weakness of the right arm and right leg with difficulty moving it. PAST MEDICAL HISTORY 1. She relates a history of antiphospholipid antibody syndrome. She states she has a history of DVT and PE. 2. There is history of lupus transverse myelitis. 3. Hypertension. 4. Depression, anxiety. 5. Hypothyroidism. 6. Appendectomy. 7. IVC filter placement. 8. Thyroidectomy. 9. Tonsillectomy. 10. . MEDICATIONS AT HOME 1. Robaxin. 2. Percocet. 3. Embeda. 4. Eliquis 5 mg b.i.d. 5. Phenergan. 6. Gabapentin. 7. Xanax. 8. Lisinopril. 9. Atenolol. 10. Synthroid. ALLERGIES ALBUTEROL. ARIXTRA. BACLOFEN. COUMADIN. LOVENOX. PRADAXA. REGLAN. TAPAZOLE. TORADOL. XARELTO. ZOFRAN. NEUROLOGIC EXAMINATION VITAL SIGNS: Blood pressure is 151/95, pulse is 70, respiratory rate is 20, temperature 97 degrees. Higher cortical functions at this time are completely normal including speech. Cranial nerves II-XII are normal. On motor exam initially she was unable to move the right arm or right leg. However, during conversation she was able to freely move the right arm, lifting it up quite high off the bed and maintaining this posture. Reflexes symmetric. There is no Babinski. IMAGING STUDIES MRI of the brain is normal. LABORATORY DATA The white count is 11,800, hemoglobin 12.7, hematocrit 38%, platelet count 230,000. The PT is 10, INR 1, APTT 29.4. Sodium is 138, potassium 3.6, chloride 101. IMPRESSION I do not find any definite evidence for stroke in this patient at the present time. The MRI of the brain is normal. She has inconsistencies on examination, at times stating that she cannot move the right side at although but at other times freely moving the right side. She does relate significant stressors. I think that this may be a conversion reaction possibly. RECOMMENDATIONS I agree with psychiatry evaluation. Continue Eliquis because of her antiphospholipid syndrome. MD JUAN Simons/YOJANA /8:58 PM /6:18 AM
[2016-10-27] MEDS: METHOCARBAMOL 500 MG TAB PO SCH ×2 (08:07→12:35)
[2016-10-27] MEDS: APIXABAN 5 MG TABLET PO SCH (08:07)
[2016-10-27] MEDS: GABAPENTIN 400 MG CAP PO SCH ×2 (08:07→12:35)
[2016-10-27] MEDS: oxyCODONE/ACETAMINOPHEN 10 MG/325 MG TAB PO PRN ×2 (08:08→16:42)
[2016-10-27] MEDS: SODIUM CHLORIDE 0.9% FLUSH 10 ML FLUSH IV FLUSH SCH (08:09)
[2016-10-27 08:11] LABS: AUTOMATED NEUTROPHIL # 6.8 TH/MM3 (1.8-7.7); BASOPHIL % 0.4 % (0.0-2.0); EOSINOPHIL # 0.1 TH/MM3 (0-0.4); EOSINOPHIL % 1.3 % (0.0-4.0); HEMATOCRIT 39.9 % (35.0-46.0); HEMO FLAGS DIFF FINAL; LYMPH % 27.4 % (9.0-44.0); LYMPHOCYTE # 2.9 TH/MM3 (1.0-4.8); MEAN CELL VOLUME 89.2 FL (80.0-100.0); MEAN CORPUSCULAR HEMOGLOBIN 30.3 PG (27.0-34.0); NEUT % 64.9 % (16.0-70.0); PLATELET COUNT 201 TH/MM3 (150-450); RED BLOOD COUNT 4.48 MIL/MM3 (4.00-5.30); RED CELL DISTRIBUTION WIDTH 14.2 % (11.6-17.2); WHITE BLOOD COUNT 10.4 TH/MM3 (4.0-11.0)
[2016-10-27 08:46] LABS: POTASSIUM 3.4 MEQ/L (3.5-5.1)
[2016-10-27] MEDS ORDERED: MORPHINE PO SCH (09:00)
[2016-10-27] MEDS ORDERED: NALTREXONE PO SCH (09:00)
--- NOTE | 2016-10-27 10:49 | HHI.DCPOC ---
Discharge Care Plan Diagnosis: (1) Adjustment disorder with mixed anxiety and depressed mood (2) Conversion disorder (3) Right sided weakness Goals to Promote Your Health * To prevent worsening of your condition and complications * To maintain your health at the optimal level Directions to Meet Your Goals Take your medications as prescribed Follow your dietary instruction Follow activity as directed Keep your appointments as scheduled Take your immunizations and boosters as scheduled If your symptoms worsen call your PCP, if no PCP go to Urgent Care Center or Emergency Room Smoking is Dangerous to Your Health. Avoid second hand smoke Call the 24-hour hour crisis hotline for domestic abuse at Patricia Soto MD Oct 27, 2016 10:49
--- NOTE | 2016-10-27 10:50 | HHI.DS ---
Discharge Summary Admission Date Oct 26, 2016 at 00:38 Discharge Date: Oct 27, 2016 Admitting Diagnosis CVA versus TIA (1) Conversion disorder ICD Code: F44.9 Diagnosis: Principal (2) Right sided weakness ICD Code: R53.1 Diagnosis: Principal (3) Adjustment disorder with mixed anxiety and depressed mood ICD Code: F43.23 Diagnosis: Secondary Procedures See hospital course Brief History - From Admission This is a 40-year-old female past medical history of anxiety, lupus, transverse myelitis, hypertension, history of PE/DVTs, and antiphospholipid syndrome who presented with right-sided numbness. Patient stated that she has not been feeling well the entire week. She went to [place] 1 week ago because she was not feeling well and she had some left leg swelling. She had ultrasound done to rule out DVT and that was negative. Patient stated that she was discharged from the ER. She stated that yesterday she woke up feeling like "right side popped and felt like cold water dripping on her face.' Patient stated she then " popped out of bed." She relates that her entire right side was numb including the right side of her face. Patient stated at the moment numbness continues and she has no strength in her left foot. She denies any back pain at all. Patient denies any urinary or fecal incontinence. Patient also stated that she is able to squeeze my fingers but she cannot lift her right arm. When I told patient the results of the imaging. She stated that she was told at [facility] that she has a clot in the brain of her left artery and that she needed to be transferred here. Patient stated that she is compliant with her eliquis. CBC/BMP: 10/27/16 0659 10/27/16 0659 Significant Findings Laboratory Tests Test 10/27/16 06:59 Potassium Level 3.4 MEQ/L (3.5-5.1) Creatinine 0.49 MG/DL (0.50-1.00) Random Glucose 117 MG/DL (74-106) Imaging Last Impressions Neck CTA 10/26/16 0121 Signed Impressions: Service Date/Time: Wednesday, October 26, 2016 01:21 - CONCLUSION: Normal examination of the neck arterial vasculature. Stanford Salinas MD Head CTA 10/26/16 0121 Signed Impressions: Service Date/Time: Wednesday, October 26, 2016 01:21 - CONCLUSION: No acute intracranial vascular abnormality is identified. Stanford Salinas MD Brain MRI 10/26/16 0000 Signed Impressions: Service Date/Time: Wednesday, October 26, 2016 17:49 - CONCLUSION: 1. Unremarkable MRI the brain. 2. No acute infarction seen. Alen Morillo MD PE at Discharge GENERAL: in NAD SKIN: Warm and dry. HEAD: Normocephalic. EYES: No scleral icterus. No injection or drainage. NECK: Supple, trachea midline. No JVD or lymphadenopathy. CARDIOVASCULAR: Regular rate and rhythm without murmurs, gallops, or rubs. RESPIRATORY: Breath sounds equal bilaterally. No accessory muscle use. GASTROINTESTINAL: Abdomen soft, non-tender, nondistended. MUSCULOSKELETAL: Cranial nerves II through XII intact. Left-sided strength and sensation intact. Right arm 3-4 out of 5 strength, but have noticed this varies right lower extremity 3/5 the patient is not consistent with her physical exam. Psych: Flat affect. Pt update on day of discharge Follow-up for right-sided weakness Patient stated that weakness has improved. She's continues to have weakness though. During the interview she moves all her extremities. She denies any headache, visual changes, and denied any other symptoms. When I reviewed the results with the patient I told her based on the results she did not have a stroke. She seemed to be upset with the results and stated "why was she told that she had a stroke?" I told patient I was the only hospitalist who saw her during the entire hospital stay and I never said that. I stated to her that when I saw her yesterday that she most likely did not have a stroke but we will do a MRI to rule it out. I also stated that the neurologist saw her and stated that this was not a stroke. Patient stated that he never told her that and that he left without telling her the results of the MRI. I then told patient I can bring the computer in the room and we can look at the imaging together and are report. She declined. I then went over the psychiatrist recommendation and asked patient if she has stressors in her life. She stated that she has stressors but not enough to have the symptoms that she is presenting with. I recommended to patient to see psychiatrist in regards to her stressors. I also told her that her symptoms are most likely due to her stressors. Patient stated in the past that she was an inpatient psychiatric leach for many months because she could not speak and stated that she told them she had a stroke and later on she was diagnosed with stroke. MRI brain done during this hospitalization did not show any type of old or new stroke. Patient's mother was at the bedside during the entire interview. Patient's father and daughter were asked to leave the room during the interview per patient's request. Hospital Course 40-year-old female with history of TIA, lupus, antiphospholipid syndrome, PE/ DVTs status post IVC filter placement, hypertension, anxiety/depression who presented with right-sided numbness/weakness Right-sided numbness/weakness -CT scan the brain was negative for any knee intracranial process. CT scan of the brain done until [facility] was negative. Patient transfer to [place]. CTA of that head and neck also negative. -MRI of the brain was also negative. -Psychiatrist was consulted. This may be secondary to conversion disorder. -Extensive education given to patient. Lupus/antiphospholipid syndrome/chronic pain syndrome, history of PE/DVT status post IVC filter placement, hypertension, anxiety/depression -Initially antihypertensive medication was held until CV is ruled out. Then medications were resumed. Occasional tobacco use -Education given on smoking cessation. Pt Condition on Discharge: Stable Discharge Disposition: Discharge Home Discharge Time: > 30 minutes Discharge Instructions DIET: Follow Instructions for: Heart Healthy Diet Activities you can perform: Regular-No Restrictions Follow up Referrals: PCP Follow-up - 1 Week Psychiatry Adult - 2 Weeks New Medications: Commode Bedside (Commode Bedside) 1 Mis Mis 1 EA .ROUTE DIRECTED #1 Ref 0 EA Misc. Devices (Roller Walker) 1 Mis Mis 1 EA .ROUTE NOW right sided weakness #1 EA Continued Medications: Alprazolam (Xanax) 2 Mg Tab 2 MG PO Q6HR PRN ANXIETY Ref 0 TAB Apixaban (Eliquis) 5 Mg Tab 5 MG PO BID Blood Clot Prevention #60 Ref 0 TAB Atenolol (Atenolol) 50 Mg Tab 50 MG PO DAILY Blood Pressure Management #30 Ref 0 TAB Gabapentin (Gabapentin) 600 Mg Tab 400 MG PO QID #90 Ref 0 TAB Levothyroxine (Synthroid) 175 Mcg Tab 175 MCG PO DAILY Thyroid #30 Ref 0 TAB Lisinopril (Lisinopril) 10 Mg Tab 10 MG PO BID #30 Ref 0 TAB Methocarbamol (Robaxin) 500 Mg Tab 500 MG PO TID Muscle Spasm Ref 0 TAB Morphine-Naltrexone ER (Embeda) 20-0.8 Mg Caper 1 CAP PO DAILY Pain Management #30 Ref 0 CAP Oxycodone-Acetaminophen (Percocet) 10-325 mg Tab 1 TAB PO Q6H PRN PAIN Ref 0 TAB Promethazine (Phenergan) 25 Mg Tablet 50 MG PO Q6H PRN NAUSEA OR VOMITING Ref 0 TAB Patricia Soto MD Oct 27, 2016 10:50
[2016-10-27] MEDS ORDERED: COMMODE BEDSIDE1 MI1 (12:12)
[2016-10-27] MEDS ORDERED: ROLLER WALKER1 MI1 (12:12)
[2017-01-17] MEDS ORDERED: AUGM875T3 PO (18:36)
== END 2016-10-27 17:42 | disposition home or self-care (01) ==
LOC: NEPE 23:25 → INTOOBSV 10-26 00:38 → NEDA 10-26 00:38 → N05B 10-26 03:31
PROVIDERS: ADMIT Family Medicine; ATTEND Family Medicine
DX: R53.1 Weakness (principal); F44.9 Dissociative and conversion disorder, unspecified; F43.23 Adjustment disorder with mixed anxiety and depressed mood; I10 Essential (primary) hypertension; G89.4 Chronic pain syndrome; Z79.01 Long term (current) use of anticoagulants; D68.61 Antiphospholipid syndrome; E03.9 Hypothyroidism, unspecified; M19.90 Unspecified osteoarthritis, unspecified site; D64.9 Anemia, unspecified; Z72.0 Tobacco use; M32.9 Systemic lupus erythematosus, unspecified; Z86.73 Personal history of transient ischemic attack (TIA), and cerebral infarction without residual deficits; Z79.899 Other long term (current) drug therapy; Z86.718 Personal history of other venous thrombosis and embolism
CPT/HCPCS: 70450; 70496; 70498; 70551; 80048; 80307; 81001; 82550; 84484; 84702; 85025; 85610; 85730; 93005; 97110; 97116; 97162; 97167; 97535; 99285; G0378; G8987; G8988; J2060; J7030; Q9967; 85384; 96374